=== PATIENT | female | born 1960 | race Caucasian/White ===

== ENCOUNTER 2021-11-04 10:37 | Outpatient (CLI) | payer MEDICAID ==
[2021-11-07 17:30] LABS: ANTINUCLEAR ANTIBODIES Negative (Negative)
== END 2021-11-04 23:59 | disposition home or self-care (01) ==
LOC: LAB 10:37
PROVIDERS: ATTEND Psychiatry & Neurology Neurology
DX: R40.4 Transient alteration of awareness (principal); R41.3 Other amnesia; Z79.899 Other long term (current) drug therapy
CPT/HCPCS: 36415; 82607; 82746; 84425; 84439; 84443; 85651; 86038; 86592

== ENCOUNTER 2022-12-19 08:30 | Day surgery (SDC) | payer MEDICAID ==
[~2022-12-19] VITALS: Ht 162.6 cm; Wt 58.4 kg
[2022-12-19 08:50] VITALS: BP 148/42
[2022-12-19] MEDS ORDERED: normal saline 1000ml 1,000 ML IV SCH (08:55)
[2022-12-19] MEDS ORDERED: FOLI1TAB27 PO (09:01)
[2022-12-19] MEDS ORDERED: HYDR-3964 PO (09:01)
[2022-12-19] MEDS ORDERED: DEC4T PO (09:01)
[2022-12-19] MEDS ORDERED: TRAM50TA2 PO (09:01)
[2022-12-19] MEDS ORDERED: ESCI-8 PO (09:01)
[2022-12-19] MEDS ORDERED: OLAN2.5T28 PO (09:01)
[2022-12-19] MEDS ORDERED: POTA-366 PO (09:01)
[2022-12-19] MEDS ORDERED: LEVE10006 PO (09:01)
[2022-12-19] MEDS ORDERED: PROC10TA10 PO (09:01)
[2022-12-19] MEDS ORDERED: PANT-47 PO (09:01)
[2022-12-19] MEDS ORDERED: DRON10CA8 PO (09:01)
[2022-12-19 09:24] LABS: BASOPHILS % (AUTO) 0.1 % (0-1); EOSINOPHILS % (AUTO) 0.1 % (0-6); HEMATOCRIT 30.7 % (35.0-45.0); HEMOGLOBIN 10.1 g/dl (12.0-16.0); LYMPHOCYTES # (AUTO) 1.2 X10'3 (1.1-4.8); LYMPHOCYTES % (AUTO) 10.6 % (21-51); MEAN CORPUSCULAR HGB CONC 32.9 g/dL (33.0-36.5); MEAN CORPUSCULAR VOLUME 97.3 FL (78-98); MEAN PLATELET VOLUME 6.6 FL (7.4-10.4); MONOCYTES # (AUTO) 0.9 X10'3 (0-0.9); MONOCYTES % (AUTO) 7.9 % (2-12); NEUTROPHILS # (AUTO) 9.3 X10'3 (1.8-7.7); NEUTROPHILS % (AUTO) 81.3 % (42-75); PLATELET COUNT 382 X10'3 (140-440); RED BLOOD COUNT 3.15 X10'6 (4.20-5.60); RED CELL DISTRIBUTION WIDTH 16.6 % (11.5-14.5); WHITE BLOOD COUNT 11.4 X10'3 (4.5-11.0)
[2022-12-19] MEDS ORDERED: LIDOcaine 1% 30ml preserv. free vial ONE (10:06)
[2022-12-19] MEDS ORDERED: fentaNYL/PF 50MCG/1 ML 2ML syringe ONE (10:47)
[2022-12-19] MEDS ORDERED: midazolam 1 mg/ML 2ml injection ONE (10:47)
[2022-12-19 12:27] VITALS: BP 128/74
[2022-12-19 12:42] VITALS: BP 121/73
[2022-12-19 12:57] VITALS: BP 127/75
[2022-12-19 13:00] VITALS: BP 120/77
[2022-12-19 13:12] VITALS: BP 127/78
== END 2022-12-19 13:25 | disposition home or self-care (01) ==
LOC: SSTAY O 08:30
PROVIDERS: ATTEND Radiology Vascular & Interventional Radiology
DX: T82.598A Other mechanical complication of other cardiac and vascular devices and implants, initial encounter (principal); C34.81 Malignant neoplasm of overlapping sites of right bronchus and lung; C56.9 Malignant neoplasm of unspecified ovary; G40.909 Epilepsy, unspecified, not intractable, without status epilepticus; Z90.12 Acquired absence of left breast and nipple; Z88.0 Allergy status to penicillin; Y83.8 Other surgical procedures as the cause of abnormal reaction of the patient, or of later complication, without mention of misadventure at the time of the procedure; Y92.89 Other specified places as the place of occurrence of the external cause
CPT/HCPCS: 36415; 36573; 36590; 71045; 85025; C1751; J3010; J3490; J7030; 36569; 76942; A4620; J2250